=== PATIENT | male | born 1980 | race Caucasian/White ===

== ENCOUNTER 2024-05-23 13:29 | Emergency (ER) | payer OTHER ==
[~2024-05-23] VITALS: Ht 185.4 cm; Wt 80.0 kg
[2024-05-23 14:10] LABS: BASOPHILS 0.2 % (0-2); HEMATOCRIT 36.7 % (35.0-50.0); HEMOGLOBIN 13.1 g/dL (12.0-18.0); LYMPHOCYTES 8.6 % (24-44); MCH 32.1 (27-36); MCHC 35.7 g/dl (30-36); MCV 89.9 fl (81-99); MONOCYTES 8.6 % (0-12); NEUTROPHILS 82.6 % (39-80); PLATELET COUNT 322 K/uL (140-440); RBC 4.08 M/ul (4.3-5.7); RDW 12.5 (10.5-15.0)
[2024-05-23] MEDS ORDERED: SODIUM CHLORIDE 0.9% 1,000 ML IV PRN (14:15)
[2024-05-23 14:24] LABS: ALBUMIN 3.3 g/dL (3.4-5.0); ALBUMIN/GLOBULIN RATIO 0.83 (1.1-2.4); ANION GAP 15.4 (7-21); BILIRUBIN, TOTAL 0.8 mg/dL (0.2-1.0); BUN/CREATININE RATIO 6.66 (6.0-28.6); CALCIUM 8.8 mg/dL (8.5-10.1); CREATININE, SERUM 1.2 mg/dL (0.70-1.30); POTASSIUM 3.4 mmol/L (3.5-5.1); PROTEIN, TOTAL 7.3 g/dL (6.4-8.2)
[2024-05-23] MEDS ORDERED: AZITHROMYCIN 250 MG TAB PO ONE ×2 (15:15→17:15)
[2024-05-23] MEDS ORDERED: ZITHROMAX250 MG PO (15:46)
[2024-05-23 15:50] LABS: BILIRUBIN, URINE NEGATIVE (negative); BLOOD/HGB, URINE TRACE-L (Negative); KETONE, URINE TRACE (Negative); LEUK ESTERASE, URINE NEGATIVE (negative); NITRITE, URINE NEGATIVE (negative)
[2024-05-23 15:55] VITALS: BP 130/70
[2024-05-23 15:58] LABS: BACTERIA, URINE NONE SEEN /hpf (negative); CASTS, URINE NONE SEEN \\lpf; COLLECTION TYPE, URINE CLEAN CATCH; CRYSTALS, URINE NONE SEEN (0-1+); EPITHELIAL CELLS, URINE SQUAMOUS 1+ /lpf (0-1+); RED BLOOD CELLS, URINE 0-1 /hpf (0-5); REFLEX CULTURE, URINE No (No); WHITE BLOOD CELLS, URINE 0-1 /HPF (0-5)
[2024-05-23] MEDS ORDERED: ONDANSETRON 4 MG TAB ODT SL ONE (16:15)
== END 2024-05-23 17:05 | disposition home or self-care (01) ==
LOC: ED 13:29
PROVIDERS: Emergency Medicine
DX: K52.29 Other allergic and dietetic gastroenteritis and colitis (principal); Z79.2 Long term (current) use of antibiotics
CPT/HCPCS: 36415; 74177; 80053; 81001; 83690; 85025; 99284-25; A9270; J7030; Q9967

== ENCOUNTER 2024-05-25 19:58 | Emergency (ER) | payer OTHER ==
[~2024-05-25] VITALS: Ht 185.4 cm; Wt 80.0 kg
[~2024-05-25 19:58] MED LIST: ZITHROMAX250 MG PO
--- OUTSIDE RECORDS SUMMARY | 2024-05-25 20:06 | XMS ---
PreManage Notification: SURYA GIRALDO Security Manager Site Events No recent Security Events currently on file CRITERIA MET - [facility] - 2 Visits in 30 Days CARE PROVIDERS BISI [facility] Current PHONE: [phone] Rimma has no Care Guidelines for this patient. [facility] VISIT COUNT (12 MO.) 2 [facility] TOTAL 2 NOTE: Visits indicate total known visits. ED/UCC VISIT TRACKING (12 MO.) 05/25/2024 20:00 [facility] TYPE: Emergency COMPLAINT: - DIARRHEA BLOOD 05/23/2024 13:29 [facility] TYPE: Emergency COMPLAINT: - BLOOD IN STOOL INPATIENT VISIT TRACKING (12 MO.) No inpatient visits to display in this time frame [id number]
[2024-05-25] MEDS ORDERED: PEG-3350 AND4000 ML PO (20:52)
[2024-05-25 21:44] LABS: HEMOGLOBIN 12.4 g/dL (12.0-18.0)
[2024-05-25 21:49] LABS: BASOPHILS 0.2 % (0-2); EOSINOPHILS 0.2 % (0-6); HEMATOCRIT 35.4 % (35.0-50.0); LYMPHOCYTES 7.4 % (24-44); MCH 31.3 (27-36); MCHC 34.9 g/dl (30-36); MCV 89.6 fl (81-99); MONOCYTES 8.9 % (0-12); NEUTROPHILS 83.3 % (39-80); PLATELET COUNT 368 K/uL (140-440); RBC 3.95 M/ul (4.3-5.7); RDW 12.3 (10.5-15.0)
[2024-05-25 22:00] LABS: ALBUMIN 2.9 g/dL (3.4-5.0); ALBUMIN/GLOBULIN RATIO 0.73 (1.1-2.4); ANION GAP 14.7 (7-21); BILIRUBIN, TOTAL 0.6 mg/dL (0.2-1.0); BUN/CREATININE RATIO 9.89 (6.0-28.6); CALCIUM 8.9 mg/dL (8.5-10.1); CREATININE, SERUM 0.91 mg/dL (0.70-1.30); POTASSIUM 3.7 mmol/L (3.5-5.1); PROTEIN, TOTAL 6.9 g/dL (6.4-8.2)
[2024-05-25] MEDS ORDERED: SODIUM CHLORIDE 0.9% 1,000 ML IV ONE (22:45)
[2024-05-25 23:28] VITALS: BP 130/78
== END 2024-05-25 23:29 | disposition home or self-care (01) ==
LOC: ED 19:58
PROVIDERS: Emergency Medicine
DX: K52.29 Other allergic and dietetic gastroenteritis and colitis (principal); R19.7 Diarrhea, unspecified; Z79.2 Long term (current) use of antibiotics; Z88.1 Allergy status to other antibiotic agents
CPT/HCPCS: 36415; 80053; 85025; 96360; 99284-25; J7030